=== PATIENT | male | born 1950 | race Caucasian/White ===

== ENCOUNTER 2018-01-20 09:45 | Emergency (ER) | payer MEDICARE, OTHER ==
[~2018-01-20] VITALS: Ht 167.6 cm; Wt 78.9 kg
[2018-01-20 10:16] LABS: BASOPHILS % (AUTO) 0 % (0-10); EOSINOPHILS # (AUTO) 0.1 10^3/uL (0.0-0.3); EOSINOPHILS % (AUTO) 1 % (0-10); HEMATOCRIT 29 % (40-54); HEMOGLOBIN 9.1 G/DL (13.3-17.7); LYMPHOCYTES # (AUTO) 1.2 X 10^3 (1.0-4.0); LYMPHOCYTES % (AUTO) 12 % (12-44); MEAN CORPUSCULAR HEMOGLOBIN 30 PG (25-34); MEAN CORPUSCULAR HGB CONC 32 G/DL (32-36); MEAN CORPUSCULAR VOLUME 96 FL (80-99); MEAN PLATELET VOLUME 8.9 FL (7.4-10.4); MONOCYTES # (AUTO) 0.6 X 10^3 (0.0-1.0); MONOCYTES % (AUTO) 6 % (0-12); NEUTROPHILS # (AUTO) 8.1 X 10^3 (1.8-7.8); NEUTROPHILS % (AUTO) 81 % (42-75); PLATELET COUNT 270 10^3/uL (130-400); RED BLOOD COUNT 3.01 10^6/uL (4.35-5.85); RED CELL DISTRIBUTION WIDTH 18.7 % (10.0-14.5); WHITE BLOOD COUNT 10.1 10^3/uL (4.3-11.0)
[2018-01-20 10:37] LABS: ALBUMIN 3.9 GM/DL (3.2-4.5); BILIRUBIN,TOTAL 0.8 MG/DL (0.1-1.0); CALCIUM 8.9 MG/DL (8.5-10.1); CREATININE SERUM 2.37 MG/DL (0.60-1.30); TOTAL PROTEIN 7.5 GM/DL (6.4-8.2)
[2018-01-20 10:57] LABS: TSH (THYROID ANALYZER) 3.34 UIU/ML (0.35-4.94)
--- NOTE | 2018-01-20 11:23 | Diagnostic Imaging Report ---
INDICATION: Difficulty breathing COMPARISON: None FINDINGS: Two views of the chest were obtained. Heart size is enlarged. There is some central venous congestion. There are mild interstitial changes bilaterally. This may be related to mild failure/edema. There is more patchy linear airspace disease at the right lung base which may represent atelectasis or infiltrate. There are small bilateral pleural effusions, right greater than left. There is no pneumothorax. There are mild degenerative changes in the spine. IMPRESSION: Cardiomegaly with central venous distention and interstitial change as well as bilateral pleural effusions, right greater than left, are suggestive of congestive failure/edema. Some more focal airspace disease in the right lung base may represent atelectasis, focal edema or possibly superimposed pneumonia. Short-term followup study is recommended. Dictated by: Dictated on workstation # [id number]
--- NOTE | 2018-01-20 11:26 | ED Respiratory ---
General Chief Complaint: General Problems/Pain Stated Complaint: WEAKNESS Nursing Triage Note: PT WENT TO DIALYSIS THIS A.M. AND HAD BEEN SOB FOR 3 DAYS. PT DID COMPLETE DIALYSIS BEFORE COMING HERE. History of Present Illness Date Seen by Provider: Jan 20, 2018 Time Seen by Provider: 11:00 Initial Comments Patient is a 67-year-old male who presents to the emergency room with complains of shortness of breath for about a week. He is a dialysis patient and had dialysis this morning before he came to the emergency room. He reports that he' s had a nonproductive cough for this week and has had intermittent shortness of breath throughout this time. He denies fevers, nausea, vomiting, chest pain. Timing/Duration: week Prior Episodes/Possible Cause: no prior episodes Modifying Factors: Worse With Coughing; Improves With Oxygen, Improves With Rest Associated Symptoms: cough; No dizziness, No fever/chills, No headache, No lightheadedness; shortness of breath; No wheezing Allergies and Home Medications Allergies Coded Allergies: No Known Drug Allergies (Unverified , 01/20/18) Patient Home Medication List Home Medication List Reviewed: Yes Review of Systems Constitutional: see HPI; No chills, No fever EENTM: see HPI; No ear discharge, No hearing loss, No ear pain Respiratory: see HPI, cough, short of breath; No stridor, No wheezing Cardiovascular: see HPI; No chest pain, No edema Gastrointestinal: see HPI; No abdominal pain, No diarrhea, No nausea, No vomiting Genitourinary: see HPI, other (he is on dialysis and makes very minimal urine.) Musculoskeletal: see HPI; No back pain, No gout, No joint pain Skin: see HPI; No change in color, No change in hair/nails Psychiatric/Neurological: See HPI; Denies Anxiety, Denies Depressed Hematologic/Lymphatic: See HPI; Denies Anemia, Denies Blood Clots Immunological/Allergic: see HPI; denies food allergy, denies grass allergy All Other Systems Reviewed Negative Unless Noted: Yes Past Vvhvlld-Omyted-Zifroc Hx Past Med/Social Hx: Reviewed Nursing Past Med/Soc Hx Patient Social History Alcohol Use: Denies Use Recreational Drug Use: No Smoking Status: Never a Smoker Recent Foreign Travel: No Contact w/Someone Who Travel: No Recent Infectious Disease Expo: No Recent Hopitalizations: No Seasonal Allergies Seasonal Allergies: No Past Medical History Surgeries: Yes (DIALYSIS PORT) Respiratory: No Cardiac: Yes Hypertension Neurological: No Genitourinary: Yes Dialysis Gastrointestinal: No Musculoskeletal: No Endocrine: Yes Diabetes, Insulin dep Integumentary: No Family Medical History Reviewed Nursing Family Hx Physical Exam Vital Signs - First Documented 01/20/18 01/20/18 10:00 14:58 Temp 98.4 Pulse 74 Resp 22 B/P (MAP) 160/70 (100) Pulse Ox 96 O2 Delivery Room Air O2 Flow Rate 3.50 Capillary Refill : Less Than 3 Seconds Height: 5'6.00" Weight: 174lbs. oz. [id number]; BMI Method:Stated General Appearance: WD/WN, no apparent distress Eyes: Bilateral Eye Normal Inspection, Bilateral Eye PERRL, Bilateral Eye EOMI HEENT: PERRL/EOMI, normal ENT inspection, TMs normal, pharynx normal Neck: non-tender, full range of motion, supple, normal inspection Respiratory: chest non-tender, lungs clear, normal breath sounds (clear breath sounds but are diminished.), no accessory muscle use, other (he does become short of breath with ambulation and with normal conversation with myself.) Cardiovascular: regular rate, rhythm, no edema, no gallop, no JVD, no murmur Gastrointestinal: normal bowel sounds, non tender, soft, no organomegaly, no pulsatile mass Extremities: normal range of motion, non-tender, normal inspection, no pedal edema, no calf tenderness Neurologic/Psychiatric: alert, normal mood/affect, oriented x 3 Skin: normal color, warm/dry Lymphatic: no adenopathy Procedures/Interventions Suture Size: 4-0 Progress/Results/Core Measures Suspected Sepsis Recent Fever Within 48 Hours: No Infection Criteria Present: None New/Unexplained Altered Menta: No Sepsis Screen: No Definite Risk SIRS Temperature:98.4 Pulse: 74 Respiratory Rate: 22 Laboratory Tests 01/20/18 10:10: White Blood Count 10.1 Blood Pressure 160 /70 Mean: 100 Laboratory Tests 01/20/18 10:10: Creatinine 2.37H, Platelet Count 270, Total Bilirubin 0.8 Results/Orders Lab Results Laboratory Tests Test 01/20/18 10:10 Range/Units White Blood Count 10.1 4.3-11.0 10^3/uL Red Blood Count 3.01 L 4.35-5.85 10^6/uL Hemoglobin 9.1 L 13.3-17.7 G/DL Hematocrit 29 L 40-54 % Mean Corpuscular Volume 96 80-99 FL Mean Corpuscular Hemoglobin 30 25-34 PG Mean Corpuscular Hemoglobin Concent 32 32-36 G/DL Red Cell Distribution Width 18.7 H 10.0-14.5 % Platelet Count 270 130-400 10^3/uL Mean Platelet Volume 8.9 7.4-10.4 FL Neutrophils (%) (Auto) 81 H 42-75 % Lymphocytes (%) (Auto) 12 12-44 % Monocytes (%) (Auto) 6 0-12 % Eosinophils (%) (Auto) 1 0-10 % Basophils (%) (Auto) 0 0-10 % Neutrophils # (Auto) 8.1 H 1.8-7.8 X 10^3 Lymphocytes # (Auto) 1.2 1.0-4.0 X 10^3 Monocytes # (Auto) 0.6 0.0-1.0 X 10^3 Eosinophils # (Auto) 0.1 0.0-0.3 10^3/uL Basophils # (Auto) 0.0 0.0-0.1 10^3/uL Sodium Level 140 135-145 MMOL/L Potassium Level 3.0 L 3.6-5.0 MMOL/L Chloride Level 93 L 98-107 MMOL/L Carbon Dioxide Level 38 H 21-32 MMOL/L Anion Gap 9 5-14 MMOL/L Blood Urea Nitrogen 9 7-18 MG/DL Creatinine 2.37 H 0.60-1.30 MG/DL Estimat Glomerular Filtration Rate 28 BUN/Creatinine Ratio 4 Glucose Level 145 H 70-105 MG/DL Calcium Level 8.9 8.5-10.1 MG/DL Magnesium Level 1.8 1.8-2.4 MG/DL Total Bilirubin 0.8 0.1-1.0 MG/DL Aspartate Amino Transf (AST/SGOT) 14 5-34 U/L Alanine Aminotransferase (ALT/SGPT) 12 0-55 U/L Alkaline Phosphatase 72 40-136 U/L Troponin I < 0.30 <0.30 NG/ML B-Type Natriuretic Peptide 620.4 H <100.0 PG/ML Total Protein 7.5 6.4-8.2 GM/DL Albumin 3.9 3.2-4.5 GM/DL TSH Bath Testing 3.34 0.35-4.94 UIU/ML My Orders Orders - WALT KIMBLE BNP (01/20/18 11:08) Troponin I (01/20/18 12:34) Disposal Tray (Paper/Plastic) (01/20/18 13:50) General/Regular (01/20/18 Lunch) Vital Signs/I&O 01/20/18 01/20/18 10:00 14:58 Temp 98.4 98.4 Pulse 74 74 Resp 22 22 B/P (MAP) 160/70 (100) 148/71 (100) Pulse Ox 96 96 O2 Delivery Room Air Nasal Cannula O2 Flow Rate 3.50 Capillary Refill : Less Than 3 Seconds Blood Pressure Mean: 100 Progress Note : Time: 12:05 Progress Note Spoke to Dr. Sandy she reports of this patient to be transferred to somewhere with inpatient dialysis. Given that the patient is a [place] patient with the [facility] in [place] I will make contact to arrange transportation and acceptance. 1230: Departure Impression Primary Impression: Pleural effusion Disposition: 02 XFER SHT-TRM HOSP Condition: Stable/Unchanged Transfer Time Spoke to Accepting Phy: 12:[address] Sweeney Transfer Time: 14:17 Transfer Facility: [facility] Emergency Room Method of Transfer: EMS Departure-Patient Inst. Referrals: NO,LOCAL PHYSICIAN (PCP/Family) Primary Care Physician WALT KIMBLE Jan 20, 2018 11:25
[2018-01-20 14:58] VITALS: BP 148/71
== END 2018-01-20 15:00 | disposition short-term general hospital (02) ==
LOC: EDUNIT# 09:45 → ER 09:47
DX: J90 Pleural effusion, not elsewhere classified (principal); E11.22 Type 2 diabetes mellitus with diabetic chronic kidney disease; I12.0 Hypertensive chronic kidney disease with stage 5 chronic kidney disease or end stage renal disease; N18.6 End stage renal disease; Z99.2 Dependence on renal dialysis
CPT/HCPCS: 36415; 71046; 80053; 83735; 83880; 84443; 84484; 85025; 93005; 93041